=== PATIENT | female | born 1995 | race African-American/Black ===

== ENCOUNTER 2018-04-21 12:52 | Inpatient (IN) ==
[2018-04-21 13:31] LABS: Urine Bilirubin Negative (NEGATIVE); Urine Ketone 15 mg/dL (NEGATIVE); Urine Nitrite Negative (NEGATIVE); Urine Protein 30 mg/dL (NEGATIVE); Urine Urobilinogen Normal (NORMAL)
[2018-04-21 13:44] LABS: Urine Appearance Cloudy (CLEAR); Urine Bacteria 1+; Urine Blood 10 /ul (NEGATIVE); Urine Color Yellow; Urine RBC 0-5 /hpf (0-5)
--- NOTE | 2018-04-21 13:47 | ERNOTE ---
Abdominal HPI - General Time Seen by Provider: 04/21/18 12:54 Source: patient Exam Limitations: no limitations - Immun/Allergies/Home Medications Immunizatons: IMMUNIZATION HX Immunizations Up to Date Yes Allergies/Adverse Reactions: Allergies unknown allergy medication Allergy (Unknown, Uncoded 04/21/18 13:00) Home Medications: HOME MEDICATIONS NK 04/21/18 [Last Taken Unknown] - History of Present Illness Narrative: Patient is here for mid abdominal pain that started three days ago, she describes it at cramping, worse with laying down, walking up stairs and hitting bumps in the road on the way here. She was seen in the ER in [place] yesterday, had labs and a CT done and was told that she had a kidney problem. As the pain is worse she is here today for evaluation. She has a history of schizophrenia, has been out of her medications for two months (spend one month in alf) Timing: constant, getting worse Quality: severe, cramping, stabbing Activities at Onset: none Modifying Factors - (Improves): Present: sitting up. Absent: breathing Modifying Factors - (Worsens): Present: eating, lying down Associated Symptoms: Present: nausea. Absent: headache, back pain, chest pain, diarrhea-gross blood, fever/chills, vomiting Prior Abdominal Problems: Present: none. Absent: recent trauma Prior Treatment: Present: recently seen. Absent: currently on antibiotics Review of Systems - Review of Systems Constitutional: Absent: recent illness, fever ENT: Absent: nose congestion, sore throat Respiratory: Absent: shortness of breath, cough Cardiology: Absent: chest pain Gastrointestinal/Abdominal: Present: See HPI, nausea, constipation - no BM two days, abdominal pain, eating less, drinking less Genitourinary: Absent: frequency, dysuria Musculoskeletal: Absent: back pain Skin: Absent: rash Neurological: Absent: headache Medical History (Last Reviewed 04/21/18 @ 13:19 by Tayler Miner MD) Anxiety Schizophrenia Surgical History: Surgical History (Last Reviewed 04/21/18 @ 13:19 by Tayler Miner MD) none Social History: Preferred Language Macedonian Do you have any druze or No cultural preference? Smoking Status Current every day smoker Alcohol Use occasionally Drug Use marijuana Physical Exam - Physical Exam General Appearance: Present: wd/wn, alert, no apparent distress Head Exam: Present: normal inspection Eye Exam: Normal inspection: bilateral Ears, Nose, Throat: Present: normal pharynx Respiratory: Present: no respiratory distress, normal breath sounds, no accessory muscle use, lungs clear Cardiovascular/Chest: Present: regular rate, rhythm, no murmur Gastrointestinal/Abdominal: Present: normal bowel sounds, nondistended, soft, tenderness - RLQ and mid abdomen all across. Absent: rebound Back Exam: Absent: no CVA tenderness Extremity Exam: Present: no edema Neurological Exam: Present: alert, oriented, normal mood/affect Skin Exam: Present: normal color, warm/dry ED Progress - Results and Orders Patient's Lab Results:: I have reviewed the patient's lab results. - Vital Signs Patient's Vital Signs:: I have reviewed the patient's vital signs. Vital Signs: Vital Signs 04/21/18 12:55 Temperature 36.7 C Pulse Rate 116 H Respiratory Rate 15 Blood Pressure 141/87 H O2 Sat by Pulse Oximetry 99 - Progress/Reassessment Progress Note-Subjective: 04/21/18 13:28 reviewed records from [facility], abdomen CT without contrast normal, appendix visualized and normal labs BUN/Creat 12/2.4 04/21/18 14:18 discussed test results with patient and friend, recommended admission, patient agrees 04/21/18 14:[address] Haynes 04/21/18 14:[address] Haynes, okay to admit, start IV fluids and rocephin, get blood culture and renal ultrasound, strict I&Os Departure Clinical Impression: Acute renal failure Qualifiers: Acute renal failure type: unspecified Qualified Code(s): N17.9 - Acute kidney failure, unspecified - Departure Disposition: Still a patient Condition: Stable
[2018-04-21 13:50] LABS: Hemoglobin 13.5 gm/dL (12.5-16.0); Mean Cell Volume 99.3 fl (78-100); Mean Corpuscular Hemoglobin 31.9 pg (27-31); Mean Corpuscular Hgb Conc 32.1 g/dl (32-36); Mean Platelet Volume 9.3 fl (8-12.5); Neutrophil # 10.3 K/mm3 (1.3-6.0); Platelet Count 325 K/mm3 (150-450); Red Blood Count 4.23 M/mm3 (4.2-5.4); Red Cell Distribution Width 14.1 % (11.5-14.0); White Blood Count 13.4 K/mm3 (4.0-10.5)
[2018-04-21 13:55] LABS: Cocaine Ur Negative (NEGATIVE); Urine Barbiturate Negative (NEGATIVE); Urine Benzodiazepines Negative (NEGATIVE); Urine Opiates Negative (NEGATIVE); Urine PCP Negative (NEGATIVE); Urine THC Negative (NEGATIVE)
[2018-04-21 14:05] LABS: Albumin * 3.5 gm/dl (3.4-5.0); Anion Gap 15.9 mmol/L (6.8-13.8); BUN/Creatinine Ratio 5.5 (9.0-21.6); Bilirubin, Total 0.6 mg/dL (0.0-1.1); Ca. Corrected For Albumin 8.8 mg/dL (8.4-10.2); Calcium * 8.7 mg/dL (7.9-10.9); Carbon Dioxide 23.7 mmol/L (24-32.6); Potassium 3.6 mmol/L (3.4-4.6); Total Protein 6.9 gm/dL (6.2-8.2)
[2018-04-21 14:39] LABS: Random Urine Total Protein 46.3 mg/dL (0-12)
[2018-04-21] MEDS ORDERED: NORMAL SALINE 1,000 ML IV ONE (14:39)
--- NOTE | 2018-04-21 17:24 | HP ---
Chief Complaint - Chief Complaint Date of Service: 04/21/18 Time of Service: 17:11 Chief Complaint: abdominal pain History of Present Illness: Roldan Franklin, is a 22-year-old female, with previous medical history of schizophrenia, anxiety, who was admitted today on 04/21/2018 for abdominal pain. 4 days prior to admission the patient developed right lower quadrant pain , described as crampy, sharp, stabbing, 5/10 lasting for about 15-20 minutes waxing and waning, nonradiating. She said that movement increased the pain and laying flat relieved it. She denied any fever or chills, nausea/vomiting/ diarrhea/constipation, dysuria/increased frequency. She denied URI s/sx of sore throat/cough. Denied skin lesion. 2 days prior to admission, she started taking ibuprofen for the pain. One day prior to admission, her pain shifted to her left lower quadrant and so she went to [place] emergency room department where they did a CT scan of her abdomen and pelvis w/o contrast. There was no acute intraabdominal findings and she was sent home. Her Cr then was 2.1. Today , her pain persisted and she went to our ED where her WBC was elevated at 13.4 and her Cr was up to 4.02 with a normal BUN of 22. Her UA showed epithelial cells but also had leukocyte esterase and , bacteriuria and pyuria. She was then admittef fot IVF and further work up. Her urine protein to creatinine ration was elevated. Medical History (Last Reviewed 04/21/18 @ 13:19 by Tayler Miner MD) Anxiety Schizophrenia Surgical History: Surgical History (Last Reviewed 04/21/18 @ 13:19 by Tayler Miner MD) none Family History: Family History (Last Updated 04/21/18 @ 18:10 by Za Kaur RN) Mother No pertinent past medical history no medical history Father not known Social History: Patient Lives/Resources Home Utilized Occupation none Preferred Language Croatian Do you have any jewish or No cultural preference? Smoking Status Current every day smoker Have you smoked in the past 12 Yes months Do you dip or chew tobacco No Alcohol Use occasionally Drug Use marijuana Review Of Systems (GEN) - Review of Systems Generalized/Overall Review: Absent: Chills, Fever Respiratory: Absent: Cough, Shortness of Breath, Orthopnea Cardiac: Absent: Chest Pain, Edema, Palpitations Abdominal: Absent: Nausea, Vomiting, Constipation, Diarrhea Genitourinary: Absent: Burning, Urgency, Frequency Musculoskeletal: Absent: Joint Pain Neurological: Absent: Headache Immunizations: IMMUNIZATION HX Immunizations Up to Date Yes Allergies/Adverse Reactions: Allergies Allergy/AdvReac Type Severity Reaction Status Date / Time unknown allergy medication Allergy Unknown Uncoded 04/21/18 13:00 Home Medications: HOME MEDICATIONS NK 04/21/18 [Last Taken Unknown] Exam - Exam Vital Signs: Vital Signs - Last Taken Temp 36.6 C 04/21/18 15:17 Pulse 102 H 04/21/18 15:17 Resp 16 04/21/18 15:17 BP 103/71 04/21/18 15:17 Pulse Ox 99 04/21/18 15:17 Constitutional: Present: Alert, Oriented x3, Cooperative, Young ENT Exam: Present: hearing grossly normal Eye Exam: bilateral eye: normal inspection, PERRL, EOMI Neck: Present: supple Respiratory: Present: normal breath sounds, No rales, No wheezing Cardiovascular/Chest: Present: regular rate, rhythm, no JVD, no murmur Abdomen: Present: Normal bowel sounds, soft, nondistended, tender Extremity: Present: no pedal edema, no calf tenderness Skin Exam: Present: other - positive tattoo Diagnostic Studies: Abnormal Lab Results 04/21/18 04/21/18 04/21/18 Range/Units 13:16 13:43 13:43 WBC 13.4 H (4.0-10.5) K/mm3 MCH 31.9 H (27-31) pg RDW 14.1 H (11.5-14.0) % Immature Gran # (Auto) 0.05 H (0.000-0.0310) K/mm3 Neutrophils % 77.0 H (42-75.0) % Lymphocytes % 13.6 L (20-51) % Neutrophils # 10.3 H (1.3-6.0) K/mm3 Monocytes # 1.1 H (0.0-1.0) k/mm3 Carbon Dioxide 23.7 L (24-32.6) mmol/L Anion Gap 15.9 H (6.8-13.8) mmol/L Creatinine 4.02 H (0.4-1.4) mg/dL Est GFR (Non-Af Amer) 18 L (60-130) mL/min BUN/Creatinine Ratio 5.5 L (9.0-21.6) Urine Protein 30 H (NEGATIVE) mg/dL Urine Blood 10 H (NEGATIVE) /ul Ur Leukocyte Esterase 100 H (NEGATIVE) /ul Urine WBC 10-25 H (0-5) /hpf Ur Epithelial Cells 10-25 H (0-5) /hpf Urine Bacteria 1+ H (NONE) U Random Total Protein (0-12) mg/dL U [place] Prot/Creat Ratio (0-199) mg/gm 04/21/18 Range/Units Unknown WBC (4.0-10.5) K/mm3 MCH (27-31) pg RDW (11.5-14.0) % Immature Gran # (Auto) (0.000-0.0310) K/mm3 Neutrophils % (42-75.0) % Lymphocytes % (20-51) % Neutrophils # (1.3-6.0) K/mm3 Monocytes # (0.0-1.0) k/mm3 Carbon Dioxide (24-32.6) mmol/L Anion Gap (6.8-13.8) mmol/L Creatinine (0.4-1.4) mg/dL Est GFR (Non-Af Amer) (60-130) mL/min BUN/Creatinine Ratio (9.0-21.6) Urine Protein (NEGATIVE) mg/dL Urine Blood (NEGATIVE) /ul Ur Leukocyte Esterase (NEGATIVE) /ul Urine WBC (0-5) /hpf Ur Epithelial Cells (0-5) /hpf Urine Bacteria (NONE) U Random Total Protein 46.3 H (0-12) mg/dL U [place] Prot/Creat Ratio 352 H (0-199) mg/gm Laboratory Results WBC 13.4 K/mm3 (4.0-10.5) H 04/21/18 13:43 RBC 4.23 M/mm3 (4.2-5.4) 04/21/18 13:43 Hgb 13.5 gm/dL (12.5-16.0) 04/21/18 13:43 Hct 42.0 % (37.0-47.0) 04/21/18 13:43 MCV 99.3 fl (78-100) 04/21/18 13:43 MCH 31.9 pg (27-31) H 04/21/18 13:43 MCHC 32.1 g/dl (32-36) 04/21/18 13:43 RDW 14.1 % (11.5-14.0) H 04/21/18 13:43 Plt Count 325 K/mm3 (150-450) 04/21/18 13:43 MPV 9.3 fl (8-12.5) 04/21/18 13:43 Immature Gran % (Auto) 0.40 % (0.001-0.429) 04/21/18 13:43 Immature Gran # (Auto) 0.05 K/mm3 (0.000-0.0310) H 04/21/18 13:43 Neutrophils % 77.0 % (42-75.0) H 04/21/18 13:43 Lymphocytes % 13.6 % (20-51) L 04/21/18 13:43 Monocytes % 8.4 % (0.0-9) 04/21/18 13:43 Eosinophils % 0.4 % (0.0-3.0) 04/21/18 13:43 Basophils % 0.2 % (0.0-1.0) 04/21/18 13:43 Nucleated RBC % 0.0 k/mm3 (0-1) 04/21/18 13:43 Neutrophils # 10.3 K/mm3 (1.3-6.0) H 04/21/18 13:43 Lymphocytes # 1.83 k/mm3 (1.5-3.5) 04/21/18 13:43 Monocytes # 1.1 k/mm3 (0.0-1.0) H 04/21/18 13:43 Eosinophils # 0.1 k/mm3 (0.0-0.7) 04/21/18 13:43 Absolute Basophils 0.0 k/mm3 (0.0-0.1) 04/21/18 13:43 Sodium 138 mmol/L (132-142) 04/21/18 13:43 Plasma Sodium 138 mmol/L (130-142) 04/21/18 13:43 Potassium 3.6 mmol/L (3.4-4.6) 04/21/18 13:43 Chloride 102 mmol/L (97-106) 04/21/18 13:43 Carbon Dioxide 23.7 mmol/L (24-32.6) L 04/21/18 13:43 Anion Gap 15.9 mmol/L (6.8-13.8) H 04/21/18 13:43 BUN 22 mg/dL (3-23) 04/21/18 13:43 Creatinine 4.02 mg/dL (0.4-1.4) H 04/21/18 13:43 Est GFR (Non-Af Amer) 18 mL/min (60-130) L 04/21/18 13:43 BUN/Creatinine Ratio 5.5 (9.0-21.6) L 04/21/18 13:43 Random Glucose 74 mg/dL (70-110) 04/21/18 13:43 Calcium 8.7 mg/dL (7.9-10.9) 04/21/18 13:43 Calcium Adj for Albumin 8.8 mg/dL (8.4-10.2) 04/21/18 13:43 Total Bilirubin 0.6 mg/dL (0.0-1.1) 04/21/18 13:43 AST 21 U/L (0-48) 04/21/18 13:43 ALT 23 U/L (19-67) 04/21/18 13:43 Alkaline Phosphatase 117 U/L (50-170) 04/21/18 13:43 Total Protein 6.9 gm/dL (6.2-8.2) 04/21/18 13:43 Albumin 3.5 gm/dl (3.4-5.0) 04/21/18 13:43 Urine Color Yellow 04/21/18 13:16 Urine Appearance Cloudy (CLEAR) 04/21/18 13:16 Urine pH 6.0 pH (5.0-7.0) 04/21/18 13:16 Ur Specific [place] 1.010 SP.GR. (1.005-1.010) 04/21/18 13:16 Urine Protein 30 mg/dL (NEGATIVE) H 04/21/18 13:16 Urine Glucose (UA) Negative mg/dL (NEGATIVE) 04/21/18 13:16 Urine Ketones 15 mg/dL (NEGATIVE) 04/21/18 13:16 Urine Blood 10 /ul (NEGATIVE) H 04/21/18 13:16 Urine Nitrate Negative (NEGATIVE) 04/21/18 13:16 Urine Bilirubin Negative mg/dl (NEGATIVE) 04/21/18 13:16 Prot Sulfosalicylic Acd 1+ mg/dL (0) 04/21/18 13:16 Urine Urobilinogen Normal EU/dl (NORMAL) 04/21/18 13:16 Ur Leukocyte Esterase 100 /ul (NEGATIVE) H 04/21/18 13:16 Urine RBC 0-5 /hpf (0-5) 04/21/18 13:16 Urine WBC 10-25 /hpf (0-5) H 04/21/18 13:16 Ur Epithelial Cells 10-25 /hpf (0-5) H 04/21/18 13:16 Urine Bacteria 1+ (NONE) H 04/21/18 13:16 Urine Culture Comments Culture to follow 04/21/18 13:16 Ur Random Creatinine 131.6 mg/dL (60-200) 04/21/18 Unknown U Random Total Protein 46.3 mg/dL (0-12) H 04/21/18 Unknown U [place] Prot/Creat Ratio 352 mg/gm (0-199) H 04/21/18 Unknown Urine Opiates Screen Negative (NEGATIVE) 04/21/18 13:16 Barbiturate Screen Negative (NEGATIVE) 04/21/18 13:16 Ur Phencyclidine Scrn Negative (NEGATIVE) 04/21/18 13:16 Urine Amphetamine Negative (NEGATIVE) 04/21/18 13:16 U Benzodiazepines Scrn Negative (NEGATIVE) 04/21/18 13:16 Urine Cocaine Screen Negative (NEGATIVE) 04/21/18 13:16 Urine Marijuana (THC) Negative (NEGATIVE) 04/21/18 13:16 Assessment/Plan - Assessment/Plan (1) Acute renal failure Assessment: prerenal ( unlikley) vs renal (likely) vs postrenal ( unlikely). will get urine for osmolality, urine for Na. will get a MAAME. will start her on IV rocephin for possible UTI and start her on IVF. monitor strict I and Os. Her UPr/Cr ratio was elevated - Infection (possible) vs Glomerulonephritis- nephrotic( possible) vs nephritic (unlikely). She will likely need nephrology consult for kidney biopsy. 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 Problem: Acute Qualifiers: Acute renal failure type: unspecified Qualified Code(s): N17.9 - Acute kidney failure, unspecified (2) UTI (urinary tract infection) Assessment: continue with IV rocephin. await C & S. Problem: Acute Qualifiers: Urinary tract infection type: site unspecified (3) Schizophrenia Problem: Chronic Qualifiers: Schizophrenia type: unspecified Qualified Code(s): F20.9 - Schizophrenia, unspecified
[2018-04-21] MEDS ORDERED: traMADol HCL 50 MG TABLET PO PRN (19:42)
[2018-04-21] MEDS: ACETAMINOPHEN 325 MG TABLET PO PRN (20:14)
[2018-04-21] MEDS: NORMAL SALINE 1,000 ML IV PRN (22:27)
[2018-04-22] MEDS: ACETAMINOPHEN 325 MG TABLET PO PRN ×2 (02:01→07:16)
[2018-04-22] MEDS: NORMAL SALINE 1,000 ML IV PRN (04:11)
[2018-04-22 06:21] LABS: Hematocrit 37.9 % (37.0-47.0); Mean Cell Volume 99.2 fl (78-100); Mean Corpuscular Hemoglobin 31.4 pg (27-31); Mean Corpuscular Hgb Conc 31.7 g/dl (32-36); Mean Platelet Volume 9.8 fl (8-12.5); Neutrophil # 6.5 K/mm3 (1.3-6.0); Neutrophil % 66.4 % (42-75.0); Platelet Count 264 K/mm3 (150-450); Red Blood Count 3.82 M/mm3 (4.2-5.4); Red Cell Distribution Width 13.8 % (11.5-14.0); White Blood Count 9.8 K/mm3 (4.0-10.5)
[2018-04-22 06:30] LABS: Anion Gap 14.2 mmol/L (6.8-13.8); BUN/Creatinine Ratio 6.2 (9.0-21.6); Calcium * 7.8 mg/dL (7.9-10.9); Carbon Dioxide 20.9 mmol/L (24-32.6); Estimated Creat Clear 16.4; Potassium 4.1 mmol/L (3.4-4.6)
--- NOTE | 2018-04-22 10:06 | DS ---
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 r/o Instertitital neprhitis form NSAIDS. Problem: Acute (2) UTI (urinary tract infection) Narrative: preliminary - NG . had 1 dose of IV rocephin. Problem: Acute (3) Schizophrenia Narrative: not on any medications for the last 2 months Problem: Chronic - Course Description of Stay: Roldan Franklin, is a 22-year-old female, with previous medical history of schizophrenia, anxiety, who was admitted today on 04/21/2018 for abdominal pain. 4 days prior to admission the patient developed right lower quadrant pain , described as crampy, sharp, stabbing, 5/10 lasting for about 15-20 minutes waxing and waning, nonradiating. She said that movement increased the pain and laying flat relieved it. She denied any fever or chills, nausea/vomiting/ diarrhea/constipation, dysuria/increased frequency. She denied URI s/sx of sore throat/cough. Denied skin lesion. 2 days prior to admission, she started taking ibuprofen for the pain. One day prior to admission, her pain shifted to her left lower quadrant and so she went to [place] emergency room department where they did a CT scan of her abdomen and pelvis w/o contrast. There was no acute intraabdominal findings and she was sent home. Her Cr then was 2.4. Her pain on the day of admission persisted and she went to our ED where her WBC was elevated at 13.4 and her Cr was up to 4.02 with a normal BUN of 22. Her UA showed epithelial cells but also had leukocyte esterase and , bacteriuria and pyuria. She was then admittef for IVF and further work up. Her urine protein to creatinine ration was elevated. Her FeNa was less 1% but this may not be accurate with a glomerular disease. Her MAAME showd no hydronephrosis but suggestive of medical renal parenchymal disease. Her repeat BUN/Cr today showed 25/4.05 despite IVF. I discussed her case with nephrology section maintainer at [facility]- she recommends in patient evaluation and transfer to their facility. Procedures Performed: none - Results and Findings Results and Findings: Laboratory Results - last 24 hr 04/21/18 04/21/18 04/21/18 13:16 13:16 13:43 WBC 13.4 H RBC 4.23 Hgb 13.5 Hct 42.0 MCV 99.3 MCH 31.9 H MCHC 32.1 RDW 14.1 H Plt Count 325 MPV 9.3 Immature Gran % (Auto) 0.40 Immature Gran # (Auto) 0.05 H Neutrophils % 77.0 H Lymphocytes % 13.6 L Monocytes % 8.4 Eosinophils % 0.4 Basophils % 0.2 Nucleated RBC % 0.0 Neutrophils # 10.3 H Lymphocytes # 1.83 Monocytes # 1.1 H Eosinophils # 0.1 Absolute Basophils 0.0 Sodium Plasma Sodium Potassium Chloride Carbon Dioxide Anion Gap BUN Creatinine Est GFR (Non-Af Amer) BUN/Creatinine Ratio Random Glucose Calcium Calcium Adj for Albumin Total Bilirubin AST ALT Alkaline Phosphatase Total Protein Albumin Urine Color Yellow Urine Appearance Cloudy Urine pH 6.0 Ur Specific [place] 1.010 Urine Protein 30 H Urine Glucose (UA) Negative Urine Ketones 15 Urine Blood 10 H Urine Nitrate Negative Urine Bilirubin Negative Prot Sulfosalicylic Acd 1+ Urine Urobilinogen Normal Ur Leukocyte Esterase 100 H Urine RBC 0-5 Urine WBC 10-25 H Ur Epithelial Cells 10-25 H Urine Bacteria 1+ H Urine Culture Comments Culture to follow Ur Random Creatinine U Random Total Protein U [place] Prot/Creat Ratio Ur Random Sodium Urine Opiates Screen Negative Barbiturate Screen Negative Ur Phencyclidine Scrn Negative Urine Amphetamine Negative U Benzodiazepines Scrn Negative Urine Cocaine Screen Negative Urine Marijuana (THC) Negative 04/21/18 04/21/18 04/21/18 13:43 17:08 Unknown WBC RBC Hgb Hct MCV MCH MCHC RDW Plt Count MPV Immature Gran % (Auto) Immature Gran # (Auto) Neutrophils % Lymphocytes % Monocytes % Eosinophils % Basophils % Nucleated RBC % Neutrophils # Lymphocytes # Monocytes # Eosinophils # Absolute Basophils Sodium 138 Plasma Sodium 138 Potassium 3.6 Chloride 102 Carbon Dioxide 23.7 L Anion Gap 15.9 H BUN 22 Creatinine 4.02 H Est GFR (Non-Af Amer) 18 L BUN/Creatinine Ratio 5.5 L Random Glucose 74 Calcium 8.7 Calcium Adj for Albumin 8.8 Total Bilirubin 0.6 AST 21 ALT 23 Alkaline Phosphatase 117 Total Protein 6.9 Albumin 3.5 Urine Color Urine Appearance Urine pH Ur Specific [place] Urine Protein Urine Glucose (UA) Urine Ketones Urine Blood Urine Nitrate Urine Bilirubin Prot Sulfosalicylic Acd Urine Urobilinogen Ur Leukocyte Esterase Urine RBC Urine WBC Ur Epithelial Cells Urine Bacteria Urine Culture Comments Ur Random Creatinine 131.6 U Random Total Protein 46.3 H U [place] Prot/Creat Ratio 352 H Ur Random Sodium 22 Urine Opiates Screen Barbiturate Screen Ur Phencyclidine Scrn Urine Amphetamine U Benzodiazepines Scrn Urine Cocaine Screen Urine Marijuana (THC) 04/22/18 04/22/18 06:20 06:20 WBC 9.8 D RBC 3.82 L Hgb 12.0 L Hct 37.9 MCV 99.2 MCH 31.4 H MCHC 31.7 L RDW 13.8 Plt Count 264 MPV 9.8 Immature Gran % (Auto) 0.20 Immature Gran # (Auto) 0.02 Neutrophils % 66.4 Lymphocytes % 23.0 Monocytes % 9.5 H Eosinophils % 0.7 Basophils % 0.2 Nucleated RBC % 0.0 Neutrophils # 6.5 H Lymphocytes # 2.26 Monocytes # 0.9 Eosinophils # 0.1 Absolute Basophils 0.0 Sodium 138 Plasma Sodium 138 Potassium 4.1 Chloride 107 H Carbon Dioxide 20.9 L Anion Gap 14.2 H BUN 25 H Creatinine 4.05 H Est GFR (Non-Af Amer) 18 L BUN/Creatinine Ratio 6.2 L Random Glucose 70 Calcium 7.8 L Calcium Adj for Albumin Total Bilirubin AST ALT Alkaline Phosphatase Total Protein Albumin Urine Color Urine Appearance Urine pH Ur Specific [place] Urine Protein Urine Glucose (UA) Urine Ketones Urine Blood Urine Nitrate Urine Bilirubin Prot Sulfosalicylic Acd Urine Urobilinogen Ur Leukocyte Esterase Urine RBC Urine WBC Ur Epithelial Cells Urine Bacteria Urine Culture Comments Ur Random Creatinine U Random Total Protein U [place] Prot/Creat Ratio Ur Random Sodium Urine Opiates Screen Barbiturate Screen Ur Phencyclidine Scrn Urine Amphetamine U Benzodiazepines Scrn Urine Cocaine Screen Urine Marijuana (THC) - Medications Medications: Active Medications Acetaminophen (Tylenol) 650 mg PO Q4H PRN PRN Reason: Mild pain (pain scale 1-3) Stop: 05/21/18 19:43 Last Admin: 04/22/18 07:16 Dose: 650 mg Ceftriaxone Sodium 1,000 mg/ (Dextrose/Water) 100 mls @ 200 mls/hr IV Q24H YESICA ; Protocol Stop: 05/21/18 14:46 Last Admin: 04/21/18 14:59 Dose: 200 mls/hr Sodium Chloride (Sodium Chloride 0.9%) 1,000 mls @ 125 mls/hr IV .Q8H PRN PRN Reason: HYDRATION Stop: 05/21/18 21:49 Last Admin: 04/22/18 04:11 Dose: 125 mls/hr Discontinued Medications Sodium Chloride (Sodium Chloride 0.9%) 1,000 mls @ 200 mls/hr IV .Q5H ONE Stop: 04/21/18 19:38 Last Admin: 04/21/18 14:59 Dose: 200 mls/hr - Disposition Disposition: Short Term Hospital Inpatient Condition: Stable Discharge Date: 04/22/18 Discharge Time: 11:50
[2018-04-22 10:33] LABS: CK Total * 103 U/L (0-259); LD 203 U/L (81-234)
[2018-04-22 12:00] VITALS: BP 139/79
[2018-04-23 14:07] LABS: Hep C Ab NON-REACTIVE (NON-REACTIVE)
== END 2018-04-22 11:52 | disposition short-term general hospital (02) | DRG 699 ==
LOC: ER 12:52 → MS 14:35
PROVIDERS: ADMIT Internal Medicine; ATTEND Internal Medicine
CPT/HCPCS: 36415; 76770; 80048; 80053; 80307; 81001; 82550; 82570; 83615; 83930; 83935; 84155; 84156; 84300; 85025; 85045; 86803; 87040; 87086; 96365; 99284; G0479